=== PATIENT | male | born 1955 | race Caucasian/White ===

== ENCOUNTER 2018-10-22 09:28 | Inpatient (IN) | payer OTHER ==
[~2018-10-22] VITALS: Ht 180.3 cm; Wt 78.2 kg
[2018-10-22] VITALS (32 sets, daily range): BP systolic 70–135; BP diastolic 41–82; BMI 23.7
[2018-10-22 10:33] LABS: APTT 23.3 SECONDS (22.8-39.4); INR 1.05 (0.85-1.17); PROTIME 13.2 SECONDS (11.6-15.0)
[2018-10-22 10:36] LABS: ALBUMIN 2.6 g/dL (3.4-5.0); ALKALINE PHOSPHATASE 69 U/L (46-116); ALT (SGPT) 18 U/L (10-68); AMYLASE - SERUM 17 U/L (25-115); CALC OSMOLALITY 294 mosm/kg (275-300); CALCIUM 7.8 mg/dL (8.5-10.1); CARBON DIOXIDE 24.7 mmol/L (21.0-32.0); CHLORIDE - SERUM 107 mmol/L (98-107); CREATININE - SERUM 0.7 mg/dL (0.6-1.3); GLUCOSE 103 mg/dL (74-106); LIPASE 56 U/L (73-393); POTASSIUM - SERUM 3.7 mmol/L (3.5-5.1); PROTEIN - SERUM 5.7 g/dL (6.4-8.2); SODIUM 144 mmol/L (136-145); UREA NITROGEN 34 mg/dL (7-18); eGFR NON AFRICAN AMERICAN > 90 mL/min (90-120)
[2018-10-22 10:40] LABS: BASOPHILS 0.2 % (0-2); EOSINOPHILS 0 % (0-7); HEMOGLOBIN 8.9 g/dL (13.5-17.5); IMMATURE GRANULOCYTES 0.6 % (0-5); LYMPHOCYTES 16.9 % (15-50); MCH 24.2 pg (26.0-34.0); MCHC 30.7 g/dL (31.0-37.0); MCV 78.8 fL (80.0-100.0); MEAN PLATELET VOLUME 9.8 fL (7.4-10.4); MONOCYTES 3.7 % (2-11); NEUTROPHILS 78.6 % (40-80); PLATELET COUNT 239 10x3/uL (130-400); RBC 3.68 10x6/uL (4.20-6.10); RDW 23.1 % (11.5-14.5); WBC 11.8 10x3/uL (4.8-10.8)
--- NOTE | 2018-10-22 14:20 | NUR ---
RECEIVED PATIENT AT THIS TIME. PATIENT AWAKE ALERT AND ORIENTED. NO EVIDENCE OF SKIN BREAK DOWN. ABLE TO TRANSFER SELF FROM ER BED TO ICU BED. HOOKED UP TO MONITOR--VITAL SIGNS STABLE AND NORMAL SINUS RHYTHM. REMOVED O2 NC IT WAS NOT NECESSARY. BLOOD FINISHED INFUSING THROUGH LEFT AC. LEVOPHED INFUSING THROUGH RIGHT AC AT 8MCG. WILL CONTINUE TO MONITOR AND CHECK ORDERS.
--- NOTE | 2018-10-22 15:14 | NUR ---
STARTED 1ST UNIT OF PLASMA INFUSION. VSS. WILL CONTINUE TO MONITOR
--- NOTE | 2018-10-22 15:58 | NUR ---
PLACED MANZO CATHETER AND OBTAINED URINE SPECIMEN. VSS. WILL CONTINUE TO MONITOR
--- NOTE | 2018-10-22 16:00 | NUR ---
LEVOPHED TITRATED DOWN TO 5MCG AT THIS TIME. BP STABLE.
--- NOTE | 2018-10-22 16:17 | NUR ---
STARTED SECOND BAG OF FFP. VSS. LEVOPHED DOWN TO 4MCG/MIN WITH STABLE BP. WILL CONTINUE TO MONITOR
--- NOTE | 2018-10-22 16:17 | NUR ---
LEVOPHED CONTINUED INFUSING UPON ADMISSION TO ICU.
--- NOTE | 2018-10-22 16:37 | NUR ---
SPOKE TO DR. ACEVES ON PHONE. CONFIRMED THAT HE DOES WANT 2ND UNIT OF BLOOD TO BE ADMNISTERED, AND TO ORDER H&H 2 HOURS AFTER IT FINISHES IF BECK HAS BLOOD STOOL TONIGHT, OTHERWISE WAIT FOR CBC IN AM.
--- NOTE | 2018-10-22 16:50 | NUR ---
STARTED 2ND UNIT OF PRBC AT THIS TIME. VSS.
--- NOTE | 2018-10-22 17:00 | NUR ---
LEVOPHED TITRATED DOWN TO 3 MCG AT THIS TIME. BP STABLE.
--- NOTE | 2018-10-22 17:00 | NUR ---
DR ACEVES CAME BY TO SEE PATIENT AND DISCUSSED PROBABLE EGD ON THURSDAY.
--- NOTE | 2018-10-22 17:50 | NUR ---
2ND UNIT OF BLOOD FINISHED TRANSFUSING AT THIS TIME. VSS.
--- NOTE | 2018-10-22 17:57 | MORECARE ---
CASE MANAGEMENT DISCHARGE SUMMARY PATIENT: LATANYA CALVILLO UNIT: [id number] ADM DATE: 10/22/18 AGE: 62 : 55 SEX: M ROOM/BED: D.2302 AUTHOR: CRAIG BREWER PHYSICIAN: REFERRING PHYSICIAN: KELLY WISDOM MD DATE OF SERVICE: 10/22/18 Discharge Plan Patient Name: LATANYA CALVILLO [facility] [facility] 1955 Planned Disposition: Home Anticipated Discharge Date: Discharge Date: Expected LOS: Initial Reviewer: [email or web address] Initial Review Date: 10/22/2018 Generated: 10/22/18 6:57 pm DCPIA - Discharge Planning Initial Assessment Updated by [email or web address]: Kathie Michaud on 10/22/18 5:57 pm * Is the patient Alert and Oriented? Yes * How many steps to enter\exit or inside your home? * PCP NO PCP * [facility] * Preadmission Environment Home Alone * ADLs Independent * Other Equipment WALKER, CANE, SHOWER CHAIR, BSC * List name and contact numbers for known caregivers / representatives who currently or will assist patient after discharge: DARIA SHRESTHA - [place] - [phone] * Verbal permission to speak to the caregivers and representatives has been obtained from the patient. N/A * Community resources currently utilized None * Additional services required to return to the preadmission environment? No * Can the patient safely return to the preadmission environment? Yes * Has this patient been hospitalized within the prior 30 days at any hospital? No Patient Name: LATANYA CALVILLO Page [phone] at 1757 All edits/amendments must be made on the electronic document DICTATION DATE: 10/22/181756 STOREROOM ATTENDANT: KASEY 10/22/181756 RPT#: [id number] DC DATE: STATUS: ADM IN [facility] [address] [place] [address] END OF REPORT
--- NOTE | 2018-10-22 18:00 | NUR ---
LEVOPHED TITRATED DOWN TO 1MCG AT THIS TIME. BP STABLE.
--- NOTE | 2018-10-22 18:04 | MORECARE ---
CASE MANAGEMENT DISCHARGE SUMMARY PATIENT: LATANYA CALVILLO UNIT: [id number] ADM DATE: 10/22/18 AGE: 62 : 55 SEX: M ROOM/BED: D.2302 AUTHOR: DANIELLADOC PHYSICIAN: REFERRING PHYSICIAN: KELLY WISDOM MD DATE OF SERVICE: 10/22/18 Discharge Plan Patient Name: LATANYA CALVILLO [facility] [facility] 1955 Planned Disposition: Home Anticipated Discharge Date: Discharge Date: Expected LOS: Initial Reviewer: [email or web address] Initial Review Date: 10/22/2018 Generated: 10/22/18 7:03 pm Comments DCP- Discharge Planning Updated by [email or web address]: Kathie Michaud on 10/22/18 5:[address] Patient Name: LATANYA CALVILLO Admission Status: ER Accout number: [id number] Admission Date: 10-22-2018 : 1955 Admission Diagnosis: Attending: KELLY WISDOM Current LOS: 1 Anticipated DC Date: Planned Disposition: Home Primary Insurance: [facility] Discharge Planning Comments: CM met with patient at bedside about discharge planning /needs. Patient states he lives alone. Patient states he plans to discharge to his home. States he will have a friend transport him home upon discharge. Denies need for home health or other community resource needs. States home environment is safe. Denies any discharge needs or concerns at this time. CM will continue to follow and assist as needed with discharge planning / needs. Cop Examiner: Kathie Michaud DCPIA - Discharge Planning Initial Assessment Updated by [email or web address]: Kathie Michaud on 10/22/18 5:57 pm * Is the patient Alert and Oriented? Yes * How many steps to enter\exit or inside your home? * PCP NO PCP * [facility] * Preadmission Environment Home Alone * ADLs Independent * Other Equipment WALKER, CANE, SHOWER CHAIR, BSC * List name and contact numbers for known caregivers / representatives who currently or will assist patient after discharge: DARIA SHRESTHA - [place] - [phone] * Verbal permission to speak to the caregivers and representatives has been obtained from the patient. N/A * Community resources currently utilized None * Additional services required to return to the preadmission environment? No * Can the patient safely return to the preadmission environment? Yes * Has this patient been hospitalized within the prior 30 days at any hospital? No Last DP export: 10/22/18 4:57 pm Patient Name: LATANYA CALVILLO Page [phone] at 1804 All edits/amendments must be made on the electronic document DICTATION DATE: 10/22/181802 DROP HAMMER OPERATOR HELPER: KASEY 10/22/181802 RPT#: [id number] DC DATE: STATUS: ADM IN [facility] [address] [place] [address] END OF REPORT
--- NOTE | 2018-10-22 18:15 | NUR ---
TURNED OFF LEVOPHED AT THIS TIME. WILL CONTINUE TO MONITOR
--- NOTE | 2018-10-22 19:00 | NUR ---
ASSUMED CARE OF PATIENT. INITIAL SHIFT ASSESSMENT COMPLETED, SEE FLOWSHEET. WILL MONITOR CLOSELY THROUGH OUT THE NIGHT.
--- NOTE | 2018-10-22 21:00 | NUR ---
PM MEDS GIVEN PER MD ORDERS, SEE OCT. WILL CTM.
--- NOTE | 2018-10-22 23:00 | NUR ---
REASSESSMENT COMPLETED, SEE FLOWSHEET. WILL CTM.
[2018-10-23] VITALS (18 sets, daily range): BP systolic 102–139; BP diastolic 63–86
--- NOTE | 2018-10-23 01:00 | NUR ---
NO ACUTE CHANGES NOTED. VSS. WILL CTM.
--- NOTE | 2018-10-23 03:00 | NUR ---
REASSESSMENT COMPLETED, SEE FLOWSHEET. WILL CTM.
[2018-10-23 04:02] LABS: BASOPHILS 0.5 % (0-2); HEMATOCRIT 27.6 % (42.0-54.0); IMMATURE GRANULOCYTES 0.7 % (0-5); LYMPHOCYTES 32.3 % (15-50); MCH 26.2 pg (26.0-34.0); MCHC 32.6 g/dL (31.0-37.0); MCV 80.5 fL (80.0-100.0); MEAN PLATELET VOLUME 9.7 fL (7.4-10.4); MONOCYTES 6.7 % (2-11); NEUTROPHILS 58.8 % (40-80); PLATELET COUNT 175 10x3/uL (130-400); RBC 3.43 10x6/uL (4.20-6.10); RDW 20.7 % (11.5-14.5); WBC 7.6 10x3/uL (4.8-10.8)
[2018-10-23 04:16] LABS: ALBUMIN 1.9 g/dL (3.4-5.0); ALKALINE PHOSPHATASE 61 U/L (46-116); ALT (SGPT) 15 U/L (10-68); BILIRUBIN - TOTAL 0.47 mg/dL (0.2-1.3); CALC OSMOLALITY 286 mosm/kg (275-300); CALCIUM 7.5 mg/dL (8.5-10.1); CARBON DIOXIDE 22.2 mmol/L (21.0-32.0); CHLORIDE - SERUM 111 mmol/L (98-107); CREATININE - SERUM 0.5 mg/dL (0.6-1.3); GLUCOSE 92 mg/dL (74-106); POTASSIUM - SERUM 4.9 mmol/L (3.5-5.1); PROTEIN - SERUM 5.2 g/dL (6.4-8.2); SODIUM 143 mmol/L (136-145); UREA NITROGEN 19 mg/dL (7-18); eGFR NON AFRICAN AMERICAN > 90 mL/min (90-120)
--- NOTE | 2018-10-23 05:00 | NUR ---
NO ACUTE CHANGES NOTED. VSS. PATIENT APPEARS TO BE RESTING COMFORTABLY. WILL CTM.
--- NOTE | 2018-10-23 07:00 | NUR ---
SHIFT ASSESSMENT COMPLETED, PT CARE ASSUMED. MONITORS ON AND WORKING. VITALS STABLE, PT RESTNG CALMLY IN BED, MANZO STAT LOCKED IN PLACE, NO SIGNS/SYMPTOMS OF PAIN OR DISCOMFORT NOTED AT THIS TIME. CALL LIGHT WITHIN REACH, WILL CONTINUE TO OBSERVE.
--- NOTE | 2018-10-23 09:00 | NUR ---
PT SITTING UP IN BED EATING BREAKFAST, PT AWAKE AND ALERT, CALL LIGHT WITHIN REACH, WILL CONTINUE TO OBSERVE.
--- NOTE | 2018-10-23 11:00 | NUR ---
PT SITTING UP EATING LUNCH, MONITORS ON AND WORKING, VITALS STABLE. PT AWAKE AND ALERT. NO SIGNS/SYMPTOMS OF PAIN OR DISCOMFORT NOTED AT THIS TIME, SEE FLOW SHEET FOR FURTHER DETAILS CALL LIGHT WITHIN REACH, WILL CONTINUE TO OBSERVE.
--- NOTE | 2018-10-23 16:21 | NUR ---
RECIEVED PT FROM ICU [id number]. NO S/S OF ACUTE DISTRESS. CL IN PLACE.
[2018-10-23 19:02] LABS: APPEARANCE CLEAR (CLEAR); BILIRUBIN NEGATIVE (NEGATIVE); COLOR YELLOW (YELLOW); GLUCOSE NEGATIVE (NEGATIVE); KETONE SMALL mg/dL (NEGATIVE); NITRITE NEGATIVE (NEGATIVE); PH 6.5 (5.0-6.0); PROTEIN TRACE mg/dL (NEGATIVE); UROBILINOGEN NORMAL (NORMAL)
[2018-10-23 19:05] LABS: BACTERIA FEW /hpf (NONE SEEN); EPITHELIAL CELLS OCC /hpf (0-5); MUCUS <1+ /lpf (NONE SEEN); RED CELLS - URINE 25-50 /hpf (0-5); WHITE CELLS - URINE 0-5 /hpf (0-5)
--- NOTE | 2018-10-23 19:15 | NUR ---
RECEIVED CARE FROM DAY NURSE. LYING IN BED. REPORTS NO NEEDS AT THIS TIME. CALL LIGHT AT SIDE. IV INFUSING PER ORDER TO LEFT AC. MANZO TO GRAVITY.
--- NOTE | 2018-10-23 20:47 | NUR ---
MANZO REMOVED PER PROTOCOL
[2018-10-24] VITALS (8 sets, daily range): BP systolic 98–125; BP diastolic 57–77
--- NOTE | 2018-10-24 05:07 | NUR ---
I have reviewed this patient and I concur with the Shift Assessment completed by the Licensed Practical Nurse today this shift.
[2018-10-24 07:15] LABS: BASOPHILS 0.3 % (0-2); EOSINOPHILS 1.2 % (0-7); HEMATOCRIT 22.7 % (42.0-54.0); IMMATURE GRANULOCYTES 0.2 % (0-5); LYMPHOCYTES 35.4 % (15-50); MCH 26.5 pg (26.0-34.0); MCHC 32.2 g/dL (31.0-37.0); MEAN PLATELET VOLUME 9.9 fL (7.4-10.4); NEUTROPHILS 57.9 % (40-80); PLATELET COUNT 173 10x3/uL (130-400); RBC 2.75 10x6/uL (4.20-6.10); RDW 21.3 % (11.5-14.5)
[2018-10-24 07:16] LABS: MCV 82.5 fL (80.0-100.0)
[2018-10-24 07:17] LABS: CALC OSMOLALITY 282 mosm/kg (275-300); CALCIUM 7.1 mg/dL (8.5-10.1); CARBON DIOXIDE 22.7 mmol/L (21.0-32.0); CHLORIDE - SERUM 111 mmol/L (98-107); GLUCOSE 85 mg/dL (74-106); SODIUM 142 mmol/L (136-145); UREA NITROGEN 16 mg/dL (7-18)
[2018-10-24 07:18] LABS: HEMOGLOBIN 7.3 g/dL (13.5-17.5)
[2018-10-24 07:20] LABS: CREATININE - SERUM 0.7 mg/dL (0.6-1.3); POTASSIUM - SERUM 3.4 mmol/L (3.5-5.1); eGFR NON AFRICAN AMERICAN > 90 mL/min (90-120)
--- NOTE | 2018-10-24 07:34 | NUR ---
SPOKE WITH DR WISDOM ABOUT HGB-7.3. TO FOR TYPE AND CROSS 2 UNITS PRBC.
--- NOTE | 2018-10-24 09:03 | NUR ---
PT RESTING IN BED. MORPHINE GIVEN PER MD ORDER FOR PAIN IN RIBS. NO S/S OF ACUTE DISTRESS. CL IN PLACE.
--- NOTE | 2018-10-24 10:13 | NUR ---
INFUSING PRBC. NO S/S OF ACUTE DISTRESS. CL IN PLACE.
--- NOTE | 2018-10-24 10:23 | NUR ---
PT REFUSE SCDS.
--- NOTE | 2018-10-24 11:20 | NUR ---
LATE ENTRY 1050. INFUSING PRBC. R ARM 81/49. L 82/55. SPOKE WITH IRASEMA DURHAM. INCREASE PRBC TO 300ML/HR. CURRENT BP 95/61. NO S/S OF ACUTE DISTRESS. CL IN PLACE.
--- NOTE | 2018-10-24 18:05 | NUR ---
LATE ENTRY TO [address] AMAYA WHILE PT RECIEVING 2 UNIT PRBC. TOLD HIM ABOUT DARK RED STOOL. PER DR AMAYA TRANS TO ICU IF PT DOES NOT MAINTAIN BP. CHECKED BP AT 1552 93/54. CALLED DR MURRAY DT NO TIMEFRAME FOR H/H ORDERED. TO FOR H/H STAT AND Q6H. NS 500 ML BOLUS AND TRANS FOR ICU. CALLED HOUSE SUP WHO IS FINDING A BED. NO S/S OF ACUTE DISTRESS. CL IN PLACE. 1806 114/69. NS @ 300ML/HR RUNNING. NO S/S OF ACUTE DISTRESS. CL IN PLACE. PT ASKING FOR PAIN MEDS. EDUCATED PT ON HOLDING THE MED UNTIL THE PT BP WAS STABLE.
--- NOTE | 2018-10-24 19:15 | NUR ---
RECEIVED CARE FROM DAY NURSE. LYING IN BED. NO DISTRESS NOTED. IV INFUSING BOLUS AT THIS TIME PER ORDER. BP 112/64 AT THIS TIME. TO TX TO ICU WHEN BED AVAILABLE.
[2018-10-24 19:24] LABS: HEMATOCRIT 31.8 % (42.0-54.0); HEMOGLOBIN 10.5 g/dL (13.5-17.5)
--- NOTE | 2018-10-24 20:00 | NUR ---
TX TO ICU PER ORDER.
[2018-10-25] VITALS (21 sets, daily range): BP systolic 101–127; BP diastolic 62–85; Ht 180.3 cm; Wt 78.2 kg
[2018-10-25 01:14] LABS: HEMATOCRIT 29.3 % (42.0-54.0); HEMOGLOBIN 9.7 g/dL (13.5-17.5)
[2018-10-25 05:59] LABS: BASOPHILS 0.3 % (0-2); HEMATOCRIT 29.2 % (42.0-54.0); HEMOGLOBIN 9.7 g/dL (13.5-17.5); IMMATURE GRANULOCYTES 0.3 % (0-5); MCH 28.2 pg (26.0-34.0); MCHC 33.2 g/dL (31.0-37.0); MEAN PLATELET VOLUME 9.3 fL (7.4-10.4); MONOCYTES 6.2 % (2-11); NEUTROPHILS 60.2 % (40-80); PLATELET COUNT 184 10x3/uL (130-400); RDW 19.6 % (11.5-14.5); WBC 7.1 10x3/uL (4.8-10.8)
[2018-10-25 06:08] LABS: MCV 84.9 fL (80.0-100.0); RBC 3.44 10x6/uL (4.20-6.10)
[2018-10-25 06:30] LABS: ALBUMIN 1.6 g/dL (3.4-5.0); ALKALINE PHOSPHATASE 51 U/L (46-116); ALT (SGPT) 12 U/L (10-68); BILIRUBIN - TOTAL 0.49 mg/dL (0.2-1.3); CALCIUM 7.2 mg/dL (8.5-10.1); CARBON DIOXIDE 21.3 mmol/L (21.0-32.0); CHLORIDE - SERUM 110 mmol/L (98-107); GLUCOSE 79 mg/dL (74-106); POTASSIUM - SERUM 3.6 mmol/L (3.5-5.1); PROTEIN - SERUM 4.5 g/dL (6.4-8.2); SODIUM 140 mmol/L (136-145)
[2018-10-25 06:35] LABS: CALC OSMOLALITY 275 mosm/kg (275-300); CREATININE - SERUM 0.5 mg/dL (0.6-1.3); UREA NITROGEN 7 mg/dL (7-18); eGFR NON AFRICAN AMERICAN > 90 mL/min (90-120)
--- NOTE | 2018-10-25 07:15 | NUR ---
REPORT RECIEVED, SHIFT ASSESSMENT COMPLETE, PT IS ALERT AND ORIENTED, UPTO BSC WITH 400 MAROON STOOL NOTED, ALL PPP, VSS, CALL LIGHT IN REACH
--- NOTE | 2018-10-25 09:05 | NUR ---
UPDATE GIVEN TO FAMILY OVER PHONE,
--- NOTE | 2018-10-25 11:14 | NUR ---
REASSESSMENT COMPLETE, NO CHANGES NOTED, WILL CON'T TO MONITOR
[2018-10-25 12:52] LABS: HEMATOCRIT 29.1 % (42.0-54.0); HEMOGLOBIN 9.6 g/dL (13.5-17.5)
--- NOTE | 2018-10-25 13:44 | NUR ---
DR. DARDEN AT BEDSIDE, UPDATE GIVEN
--- NOTE | 2018-10-25 13:57 | NUR ---
PT TO GI LAB AT THIS TIME
--- NOTE | 2018-10-25 15:02 | NUR ---
1500-ASSISTED TO TOILET TO HAVE LARGE MARROON STOOL-REPORTED TO DR. AMAYA.
--- NOTE | 2018-10-25 17:12 | MORECARE ---
CASE MANAGEMENT DISCHARGE SUMMARY PATIENT: LATANYA CALVILLO UNIT: [id number] ADM DATE: 10/22/18 AGE: 62 : 55 SEX: M ROOM/BED: D.2307 AUTHOR: ADNIELLA,DOC PHYSICIAN: REFERRING PHYSICIAN: KELLY WISDOM MD DATE OF SERVICE: 10/25/18 Discharge Plan Patient Name: LATANYA CALVILLO [facility] [facility] 1955 Planned Disposition: Home Anticipated Discharge Date: Discharge Date: Expected LOS: Initial Reviewer: [email or web address] Initial Review Date: 10/22/2018 Generated: 10/25/18 6:12 pm Comments DCP- Discharge Planning Updated by [email or web address]: Kathie Michaud on 10/22/18 4:[address] Patient Name: LATANYA CALVILLO Admission Status: ER Accout number: [id number] Admission Date: 10-22-2018 : 1955 Admission Diagnosis: Attending: KELLY WISDOM Current LOS: 1 Anticipated DC Date: Planned Disposition: Home Primary Insurance: [facility] Discharge Planning Comments: CM met with patient at bedside about discharge planning /needs. Patient states he lives alone. Patient states he plans to discharge to his home. States he will have a friend transport him home upon discharge. Denies need for home health or other community resource needs. States home environment is safe. Denies any discharge needs or concerns at this time. CM will continue to follow and assist as needed with discharge planning / needs. [place] Sander: Kathie Michaud DCPIA - Discharge Planning Initial Assessment Updated by [email or web address]: Kathie Michaud on 10/22/18 5:57 pm * Is the patient Alert and Oriented? Yes * How many steps to enter\exit or inside your home? * PCP NO PCP * [facility] * Preadmission Environment Home Alone * ADLs Independent * Other Equipment WALKER, CANE, SHOWER CHAIR, BSC * List name and contact numbers for known caregivers / representatives who currently or will assist patient after discharge: DARIA SHRESTHA - [place] - [phone] * Verbal permission to speak to the caregivers and representatives has been obtained from the patient. N/A * Community resources currently utilized None * Additional services required to return to the preadmission environment? No * Can the patient safely return to the preadmission environment? Yes * Has this patient been hospitalized within the prior 30 days at any hospital? No Last DP export: 10/22/18 4:04 pm Patient Name: LATANYA CALVILLO Page [id number] at 1712 All edits/amendments must be made on the electronic document DICTATION DATE: 10/25/181711 ASSOCIATE PROFESSOR OF ARCHAEOLOGY: KASEY 10/25/181711 RPT#: [id number] DC DATE: STATUS: ADM IN [facility] [address] [place] [address] END OF REPORT
--- NOTE | 2018-10-25 17:16 | NUR ---
PT SLEEPING COMFORTABLY VSS NO NEW CHANGES WILL CONTINUE TO MONTIOR
[2018-10-25 18:52] LABS: HEMATOCRIT 32.8 % (42.0-54.0)
--- NOTE | 2018-10-25 19:20 | NUR ---
REC'D TO CARE, TRAVELING REPRESENTATIVE PER FLOWSHEET. PT ALERT AND ORIENTED, VSS. NO IV ACCESS AT THIS TIME. PT UP TO BSC, DARK BROWN/MAROON STOOL WITH URINE - EST 150ML. NO-CARE PER PT AND BACK TO BED. ALARMS ON AND C/L IN REACH.
--- NOTE | 2018-10-25 20:40 | NUR ---
NEW IV SITED TO [facility] AFTER 3 ATTEMPTS, RESUMED IVF PER ORDERS.
--- NOTE | 2018-10-25 23:18 | NUR ---
REASSESSMENT PER FLOWSHEET, NO ACUTE CHANGES. PT REPOSITIONS SELF IN BED. URINAL EMPTIED OF 200ML CLEAR, YELLOW URINE. ALARMS ON AND C/L IN REACH.
[2018-10-26] VITALS (15 sets, daily range): BP systolic 97–125; BP diastolic 64–86
[2018-10-26 01:00] LABS: HEMATOCRIT 27.4 % (42.0-54.0)
--- NOTE | 2018-10-26 01:30 | NUR ---
R PIV LEAKING, D/C'D INTACT. NEW PIV SITED TO L FA X 2 STICKS.
--- NOTE | 2018-10-26 03:15 | NUR ---
REASSESSMENT PER FLOWSHEET, NO ACUTE CHANGES. PT AWAKENS EASILY, DENIES PAIN OR NEEDS. VSS. C/L IN REACH.
[2018-10-26 04:40] LABS: BASOPHILS 0.4 % (0-2); EOSINOPHILS 1.9 % (0-7); HEMATOCRIT 26.5 % (42.0-54.0); HEMOGLOBIN 8.6 g/dL (13.5-17.5); IMMATURE GRANULOCYTES 0.3 % (0-5); LYMPHOCYTES 26.3 % (15-50); MCH 27.7 pg (26.0-34.0); MCHC 32.5 g/dL (31.0-37.0); MCV 85.5 fL (80.0-100.0); MEAN PLATELET VOLUME 9.4 fL (7.4-10.4); MONOCYTES 7.7 % (2-11); NEUTROPHILS 63.4 % (40-80); WBC 7.4 10x3/uL (4.8-10.8)
[2018-10-26 04:49] LABS: PLATELET COUNT 241 10x3/uL (130-400)
[2018-10-26 05:09] LABS: ALBUMIN 1.6 g/dL (3.4-5.0); ALKALINE PHOSPHATASE 44 U/L (46-116); ALT (SGPT) 12 U/L (10-68); BILIRUBIN - TOTAL 0.31 mg/dL (0.2-1.3); CARBON DIOXIDE 20.1 mmol/L (21.0-32.0); CHLORIDE - SERUM 106 mmol/L (98-107); CREATININE - SERUM 0.5 mg/dL (0.6-1.3); POTASSIUM - SERUM 3.6 mmol/L (3.5-5.1); PROTEIN - SERUM 4.4 g/dL (6.4-8.2); SODIUM 131 mmol/L (136-145); eGFR NON AFRICAN AMERICAN > 90 mL/min (90-120)
[2018-10-26 05:22] LABS: CALC OSMOLALITY 257 mosm/kg (275-300); CALCIUM 6.9 mg/dL (8.5-10.1); GLUCOSE 70 mg/dL (74-106); UREA NITROGEN 5 mg/dL (7-18)
--- NOTE | 2018-10-26 07:00 | NUR ---
REPORT RECIEVED, SHIFT ASSESSMENT COMPLETE. PT IS ALERT AND ORIENTED, ALL PPP, VSS, CALL LIGHT IN REACH
--- NOTE | 2018-10-26 09:00 | NUR ---
PT TO RAD AT THIS TIME
--- NOTE | 2018-10-26 11:30 | NUR ---
LUNCH TRAY GIVEN,
[2018-10-26 13:00] LABS: HEMATOCRIT 30.2 % (42.0-54.0); HEMOGLOBIN 9.9 g/dL (13.5-17.5)
--- NOTE | 2018-10-26 13:15 | NUR ---
NO NEEDS NOTED AT THIS TIME, WILL CON'T TO MONITOR
--- NOTE | 2018-10-26 15:00 | NUR ---
PT RESTING AT THIS TIME, WILL CON'T TO MONITOR
--- NOTE | 2018-10-26 17:00 | NUR ---
DR. AMAYA AT BEDSIDE, UPDATE GIVEN
[2018-10-26 18:27] LABS: HEMATOCRIT 25.8 % (42.0-54.0); HEMOGLOBIN 8.4 g/dL (13.5-17.5)
--- NOTE | 2018-10-26 19:00 | NUR ---
REC'D TO CARE, BUILDINGS AND GROUNDS DIRECTOR PER FLOWSHEET. PT AWAKENS EASILY, VSS. REPORTS ADEQUATE PAIN RELIEF AT THIS TIME. BSC EMPTIED OF 350ML BROWN/GREEN DIARRHEA WITH COFFEE GROUND LOOK NOTED. URINAL EMPTIED OF 200ML CLEAR, BERENICE URINE. PT WITH TRANSFER ORDERS AWAITING BED. DENIES NEEDS. C/L IN REACH.
--- NOTE | 2018-10-26 21:00 | NUR ---
NO VISITORS, PT WATCHING TV.
--- NOTE | 2018-10-26 22:25 | NUR ---
PT ON C/L REQUEST "PAIN MED FOR RIBS HURTING" - SEE EMAR. VSS. DENIES OTHER NEEDS.
--- NOTE | 2018-10-27 | NUR ---
RESTING WITH EYES CLOSED, NO SIGN OF DISTRESS.
[2018-10-27 03:00] VITALS: BP 99/59
--- NOTE | 2018-10-27 03:00 | NUR ---
PT AWAKE, WATCHING TV. DENIES NEEDS, VSS. C/L IN REACH.
[2018-10-27 04:37] LABS: BASOPHILS 0.4 % (0-2); EOSINOPHILS 4.2 % (0-7); HEMATOCRIT 25.1 % (42.0-54.0); HEMOGLOBIN 8.2 g/dL (13.5-17.5); IMMATURE GRANULOCYTES 0.1 % (0-5); LYMPHOCYTES 38.2 % (15-50); MCH 27.9 pg (26.0-34.0); MCHC 32.7 g/dL (31.0-37.0); MCV 85.4 fL (80.0-100.0); MEAN PLATELET VOLUME 9.1 fL (7.4-10.4); MONOCYTES 14.3 % (2-11); NEUTROPHILS 42.8 % (40-80); PLATELET COUNT 279 10x3/uL (130-400); RBC 2.94 10x6/uL (4.20-6.10); RDW 20.6 % (11.5-14.5); WBC 7.4 10x3/uL (4.8-10.8)
[2018-10-27 05:16] LABS: ALBUMIN 1.4 g/dL (3.4-5.0); ALKALINE PHOSPHATASE 45 U/L (46-116); ALT (SGPT) 11 U/L (10-68); CALC OSMOLALITY 269 mosm/kg (275-300); CALCIUM 7.1 mg/dL (8.5-10.1); CARBON DIOXIDE 24.6 mmol/L (21.0-32.0); CHLORIDE - SERUM 107 mmol/L (98-107); CREATININE - SERUM 0.5 mg/dL (0.6-1.3); GLUCOSE 77 mg/dL (74-106); POTASSIUM - SERUM 3.2 mmol/L (3.5-5.1); PROTEIN - SERUM 4.1 g/dL (6.4-8.2); SODIUM 137 mmol/L (136-145); UREA NITROGEN 4 mg/dL (7-18); eGFR NON AFRICAN AMERICAN > 90 mL/min (90-120)
--- NOTE | 2018-10-27 06:03 | NUR ---
PT UP TO SINK FOR AM CARE, GOWN AND LINENS CHANGED.
[2018-10-27 07:00] VITALS: BP 95/76
--- NOTE | 2018-10-27 07:00 | NUR ---
REPORT RECIEVED, SHIFT ASSESSMENT COMPLETE, PT IS ALERT AND ORIENTED, ALL PPP, VSS, CALL LIGHT IN REACH
--- NOTE | 2018-10-27 09:15 | NUR ---
PT PRE-OP AT THIS TIME,
--- NOTE | 2018-10-27 10:20 | NUR ---
PT TO GI LAB AT THIS TIME
[2018-10-27] MEDS ORDERED: PROTONIX40 MG PO (11:29)
[2018-10-27] MEDS ORDERED: CARAFATE1 G PO (11:29)
--- NOTE | 2018-10-27 12:15 | NUR ---
DR. THURSTON AT BEDSIDE, UPDATE GIVEN, OK TO DC HOME
--- NOTE | 2018-10-27 12:30 | NUR ---
LEFT FA PIV DC'D AT THIS TIME, PT TOLERATED WELL
--- NOTE | 2018-10-27 15:10 | MORECARE ---
CASE MANAGEMENT DISCHARGE SUMMARY PATIENT: LATANYA CALVILLO UNIT: [id number] ADM DATE: 10/22/18 AGE: 62 : 55 SEX: M ROOM/BED: D.2307 AUTHOR: DANIELLADOC PHYSICIAN: REFERRING PHYSICIAN: KELLY WISDOM MD DATE OF SERVICE: 10/27/18 Discharge Plan Patient Name: LATANYA CALVILLO [facility] [facility] 1955 Planned Disposition: Home Anticipated Discharge Date: Discharge Date: 10/27/2018 Expected LOS: Initial Reviewer: [email or web address] Initial Review Date: 10/22/2018 Generated: 10/27/18 4:10 pm DCP- Discharge Planning Updated by [email or web address]: Kathie Michaud on 10/22/18 4:[address] Patient Name: LATANYA CALVILLO Admission Status: ER Accout number: [id number] Admission Date: 10-22-2018 : 1955 Admission Diagnosis: Attending: KELLY WISDOM Current LOS: 1 Anticipated DC Date: Planned Disposition: Home Primary Insurance: [facility] Discharge Planning Comments: CM met with patient at bedside about discharge planning /needs. Patient states he lives alone. Patient states he plans to discharge to his home. States he will have a friend transport him home upon discharge. Denies need for home health or other community resource needs. States home environment is safe. Denies any discharge needs or concerns at this time. CM will continue to follow and assist as needed with discharge planning / needs. Drum Filler: Kathie Michaud DCPIA - Discharge Planning Initial Assessment Updated by [email or web address]: Kathie Michaud on 10/22/18 5:57 pm * Is the patient Alert and Oriented? Yes * How many steps to enter\exit or inside your home? * PCP NO PCP * [facility] [place] * Preadmission Environment Home Alone * ADLs Independent * Other Equipment WALKER, CANE, SHOWER CHAIR, BSC * List name and contact numbers for known caregivers / representatives who currently or will assist patient after discharge: DARIA SHRESTHA - [place] - [phone] * Verbal permission to speak to the caregivers and representatives has been obtained from the patient. N/A * Community resources currently utilized None * Additional services required to return to the preadmission environment? No * Can the patient safely return to the preadmission environment? Yes * Has this patient been hospitalized within the prior 30 days at any hospital? No Last DP export: 10/25/18 4:12 p Patient Name: LATANYA CALVILLO Page [id number] at 1510 All edits/amendments must be made on the electronic document DICTATION DATE: 10/27/181509 CROOK OPERATOR: KASEY 10/27/181509 RPT#: [id number] DC DATE:10/27/18 STATUS: DIS IN [facility] [address] [place] [address] END OF REPORT
== END 2018-10-27 14:16 | disposition home or self-care (01) | DRG 380 ==
LOC: D.ER 09:28 → D.EDHOLD 12:15 → D.ICU 12:15 → D.MS 10-23 16:01 → D.ICU 10-24 20:12
PROVIDERS: Family Medicine; Internal Medicine Gastroenterology; Internal Medicine Nephrology; ADMIT Emergency Medicine; ATTEND Emergency Medicine
PROC: 0DB28ZX Excision of Middle Esophagus, Via Natural or Artificial Opening Endoscopic, Diagnostic (ICD-10-PCS; 2018-10-25)
PROC: 0D748DZ Dilation of Esophagogastric Junction with Intraluminal Device, Via Natural or Artificial Opening Endoscopic (ICD-10-PCS; 2018-10-25)
PROC: 0DB48ZX Excision of Esophagogastric Junction, Via Natural or Artificial Opening Endoscopic, Diagnostic (ICD-10-PCS; principal; 2018-10-25 10:00)
PROC: 0D748ZZ Dilation of Esophagogastric Junction, Via Natural or Artificial Opening Endoscopic (ICD-10-PCS; 2018-10-27)
PROC: 0DB48ZX Excision of Esophagogastric Junction, Via Natural or Artificial Opening Endoscopic, Diagnostic (ICD-10-PCS; 2018-10-27)
DX: K22.11 Ulcer of esophagus with bleeding (principal); R57.8 Other shock; S22.42XA Multiple fractures of ribs, left side, initial encounter for closed fracture; D62 Acute posthemorrhagic anemia; F17.213 Nicotine dependence, cigarettes, with withdrawal; I95.9 Hypotension, unspecified; W19.XXXA Unspecified fall, initial encounter; E87.6 Hypokalemia; D72.829 Elevated white blood cell count, unspecified; Z72.89 Other problems related to lifestyle; K58.9 Irritable bowel syndrome, unspecified; K26.4 Chronic or unspecified duodenal ulcer with hemorrhage

== ENCOUNTER 2019-12-11 15:07 | Emergency (ER) | payer MEDICAID ==
[2019-12-11] VITALS (7 sets, daily range): BP systolic 90–102; BP diastolic 53–68; Ht 180.3 cm; Wt 77.3 kg
[~2019-12-11] VITALS: Ht 180.3 cm; Wt 77.3 kg
[~2019-12-11 15:07] MED LIST: CARAFATE1 G PO; PROTONIX40 MG PO
[2019-12-11 16:21] LABS: BASOPHILS 0.1 % (0-2); EOSINOPHILS 0 % (0-7); HEMOGLOBIN 15.3 g/dL (13.5-17.5); IMMATURE GRANULOCYTES 0.3 % (0-5); LYMPHOCYTES 9.4 % (15-50); MCH 31.1 pg (26.0-34.0); MCHC 33.3 g/dL (31.0-37.0); MCV 93.5 fL (80.0-100.0); MEAN PLATELET VOLUME 9.1 fL (7.4-10.4); MONOCYTES 6.1 % (2-11); NEUTROPHILS 84.1 % (40-80); PLATELET COUNT 359 10x3/uL (130-400); RBC 4.92 10x6/uL (4.20-6.10); RDW 19.1 % (11.5-14.5); WBC 17.4 10x3/uL (4.8-10.8)
[2019-12-11 16:25] LABS: APTT 28.2 SECONDS (22.8-39.4); INR 0.93 (0.85-1.17); PROTIME 12.4 SECONDS (11.6-15.0)
[2019-12-11 16:27] LABS: D-DIMER-QUANTITATIVE 0.64 ug/mLFEU (0.20-0.54)
[2019-12-11 16:40] LABS: ALBUMIN 2.8 g/dL (3.4-5.0); BILIRUBIN - TOTAL 1.19 mg/dL (0.2-1.3); C-REACTIVE PROTEIN 1.6 mg/dL (0.0-0.9); CALCIUM 8.5 mg/dL (8.5-10.1); CREATININE - SERUM 1.6 mg/dL (0.6-1.3); PROTEIN - SERUM 8.6 g/dL (6.4-8.2)
[2019-12-11 16:48] LABS: ANION GAP 5.7 mmol/L (8-16); POTASSIUM - SERUM 2.7 mmol/L (3.5-5.1)
--- NOTE | 2019-12-11 19:00 | NUR ---
PT ACCEPTED TO [facility] DR GANDARA, WAITING ON ROOM ASSIGNMENT
--- NOTE | 2019-12-11 19:10 | NUR ---
LEVAQUIN COMPLETE AT THIS TIME.
--- NOTE | 2019-12-11 21:10 | NUR ---
GIVEN ROOM NUMBER
--- NOTE | 2019-12-11 22:28 | NUR ---
[facility] AT BEDSIDE FOR TRANSPORT. [facility] INFUSING ON TRANSPORT.
== END 2019-12-11 22:29 | disposition other institution (70) ==
LOC: D.ER 15:07 → D.M2 16:29 → D.ER 16:29 → D.M2 16:41 → D.ER 22:29
PROVIDERS: Emergency Medicine
DX: K22.3 Perforation of esophagus (principal); F10.11 Alcohol abuse, in remission; Z87.19 Personal history of other diseases of the digestive system; J18.8 Other pneumonia, unspecified organism; R11.2 Nausea with vomiting, unspecified

== ENCOUNTER 2020-01-20 09:26 | Emergency (ER) | payer MEDICAID ==
[~2020-01-20] VITALS: Ht 180.3 cm; Wt 77.3 kg
[2020-01-20] MEDS ORDERED: ACETAMINOPHEN325 MG (09:34)
[2020-01-20] MEDS ORDERED: AUGMENTIN 875-11 TAB PO (09:35)
[2020-01-20] MEDS ORDERED: DIFLUCAN200 MG PO (09:35)
[2020-01-20] MEDS ORDERED: PERIDEX (09:35)
[2020-01-20] MEDS ORDERED: OXYCODONE HCL5 M1 PO (09:36)
[2020-01-20] MEDS ORDERED: METHOCARBAMOL500 MG PO (09:36)
[2020-01-20] MEDS ORDERED: GABAPENTIN300 MG PO (09:37)
[2020-01-20] MEDS ORDERED: B COMPLEX (09:37)
[2020-01-20] MEDS ORDERED: ASCORBIC ACID500 MG PO (09:38)
[2020-01-20 17:34] VITALS: BP 108/22
[2020-01-20 18:41] VITALS: Ht 180.3 cm; Wt 77.3 kg
== END 2020-01-20 21:23 | disposition other institution (70) ==
LOC: D.OPS 09:26 → D.ER 09:26 → EDSTATUS 17:58 → D.ER 21:23
DX: I95.9 Hypotension, unspecified (principal); R19.5 Other fecal abnormalities; J18.9 Pneumonia, unspecified organism; J93.9 Pneumothorax, unspecified; A41.9 Sepsis, unspecified organism; R06.02 Shortness of breath; R06.82 Tachypnea, not elsewhere classified; R53.1 Weakness